=== PATIENT | female | born 1975 | race Caucasian/White ===

== ENCOUNTER 2019-04-03 18:15 | Inpatient (IN) | payer BC ==
[2019-04-03 18:44] LABS: #Basophils 0.1 thou/uL (0.0-0.2); #Eosinphils 0.1 thou/uL (0.0-0.7); #Lymphocytes 2.7 thou/uL (1.20-3.40); #Monocytes 0.8 thou/uL (0.11-0.59); #Neutrophils 11.6 thou/uL (1.40-6.50); %Basophils 0.8 % (0.0-1.0); %Eosinophils 0.4 % (0.0-10.0); %Lymphocytes 17.8 % (21.0-51.0); %Monocytes 5.5 % (0.0-10.0); %Neutrophils 75.5 % (42.0-75.0); Hemoglobin 15.2 g/dL (12.0-16.0); Mean Corpuscular HGB CONC 33.5 g/dL (32.0-36.0); Mean Corpuscular Hemoglobin 31.7 pg (27.0-31.0); Mean Corpuscular Volume 94.7 fL (78.0-98.0); Mean Platelet Volume 7.7 fL (7.4-10.4); Platelet Count 269 thou/uL (130-400); White Blood Cell (WBC) Count 15.3 thou/uL (4.8-10.8)
[2019-04-03 19:04] LABS: ALT (SGPT) 15 U/L (8-55); AST (SGOT) 13 U/L (5-34); Acetaminophen Less than 6.0 mcg/mL (10.0-30.0); Albumin 4.2 g/dL (3.5-5.0); Alcohol Less than 10 mg/dL (Less than 10); Alkaline Phosphatase 122 U/L (40-150); Anion Gap 16 mmol/L (10-20); BUN (Urea Nitrogen) 17 mg/dL (7.0-18.7); Bilirubin, Total 0.5 mg/dL (0.2-1.2); CK (CPK) 43 U/L (29-168); Calc. Creatinine Clearance 0 mL/min (70-130); Calcium 10.6 mg/dL (7.8-10.44); Carbon Dioxide 22 mmol/L (22-29); Chloride 99 mmol/L (98-107); Estimated GFR-MDRD 79; Globulin 3.5 g/dL (2.4-3.5); Glucose 283 mg/dL (70-105); Protein, Total 7.7 g/dL (6.0-8.3); Salicylate Less than 8.0 mg/dL (15.0-30.0); Sodium 133 mmol/L (136-145)
[2019-04-03] MEDS ORDERED: Lorazepam 2 MG/ML VIAL ONE (19:21)
[2019-04-03] MEDS ORDERED: Ondansetron PF 4 MG/2 ML Vial ONE (20:22)
[2019-04-03] MEDS ORDERED: Ondansetron PF 4 MG/2 ML Vial IVP PRN (20:44)
[2019-04-03] MEDS ORDERED: Ondansetron ODT 4 MG TAB PO PRN (20:44)
[2019-04-03] MEDS ORDERED: Acetaminophen 650 MG Suppository PR PRN (20:44)
[2019-04-03] MEDS ORDERED: Acetaminophen 325 MG TAB PO PRN (20:44)
[2019-04-03] MEDS ORDERED: Lorazepam 2 MG/ML VIAL SLOW IVP PRN (20:46)
[2019-04-03] MEDS ORDERED: HumaLOG 300 UNITS/3 ML VIAL SC PRN (21:34)
[2019-04-03] MEDS ORDERED: Dextrose 5% in Water 1,000 ML IV PRN (21:34)
[2019-04-03] MEDS ORDERED: Dextrose 50% Abboject 50 ML SYRINGE SLOW IVP PRN (21:34)
[2019-04-03] MEDS: Sodium Chloride 0.9% 1,000 ML IV SCH (21:46)
--- NOTE | 2019-04-03 22:15 | HP ---
PRIMARY CARE PHYSICIAN: The patient reported no PCP. CHIEF COMPLAINT: Intentional overdose with Wellbutrin. TIME OF EVALUATION: 8:30 p.m. HISTORY OF PRESENT ILLNESS: This is a 44 years old female patient with past medical history of hypertension, diabetes type 2, high cholesterol, came to the hospital after having an episode of intentional overdose as a suicidal attempt with Wellbutrin. Reportedly, the patient took 60-90 capsules. The patient is postictal after seizure and under the effect of Ativan, so history is being gathered from the ER staff. The patient had several episodes of nausea and vomiting that has continued in ER. Initially during this episode she developed an episode of seizure. The patient has been given IV fluids, Ativan for seizure control, Poison Control has been called and recommendations has been made for the patient to be observed for 24 hours with IV fluid management and benzodiazepines for seizure control. During my examination, she was lethargic, aroused with the pain stimulation. We will place in ICU. We will monitor closely. REVIEW OF SYSTEMS: Unable to obtain at this point. The patient is unable to cooperate to interview due to being postictal and after being given Ativan. PAST MEDICAL HISTORY: As mentioned in the HPI. SURGICAL HISTORY: Growth in the right arm. PSYCHIATRIC HISTORY: Anxiety, bipolar disorder, depression. FAMILY HISTORY: Reviewed, noncontributory to current presentation SOCIAL HISTORY: The patient drinks socially twice a month. Currently smokes cigarettes one pack per day for the past 10 years. ALLERGIES: NO KNOWN DRUG ALLERGIES REPORTED. MEDICATIONS: Unknown. PHYSICAL EXAMINATION: VITAL SIGNS: On presentation, blood pressure 149/112, heart rate 130, respiratory rate was 26, temperature 97.9, pain was 0/10, oxygen saturation was 97% on room air. GENERAL: The patient is alert, oriented, not in acute distress. HEENT: Eyes normal conjunctivae, moist oral mucosa. Anicteric. NECK: No JVD. RESPIRATORY: Bilateral air entry. No rales. No wheezes. Symmetric expansion. CARDIOVASCULAR: The patient is tachycardic. Regular rhythm. No murmurs. No gallop. No edema. ABDOMEN: Soft. Normal bowel sounds. MUSCULOSKELETAL: Baseline range of motion and strength. SKIN: Warm, intact. No pallor. No redness. Capillary refill seems to be intact. NEURO: The patient is lethargic, unable to fully explore. No evidence of any acute focal weakness. PSYCH: Unable to explore. The patient has suicidal attempt, now is postictal. DIAGNOSTIC DATA: EKG was reviewed. The patient has sinus tachycardia at a rate of 130, CT 152, QRS 90, QT corrected 438, possible left atrial enlargement. LABORATORY DATA: Reviewed. The patient has white count of 15.3, MCV 94.7, platelet count 269. Chemistry: Sodium 133, potassium 4.0, chloride 99, carbon dioxide 22, anion gap 16, BUN 17, creatinine 0.79, GFR 79, glucose 283, calcium 10.6. LFTs were negative. TSH 5.3. Toxicology was negative. ASSESSMENT AND PLAN: The patient will be placed in the hospital with following medical problems: 1. Wellbutrin overdose due to suicidal attempt. The patient is receiving supportive care with IV fluids and also seizure precautions. We will give Ativan for any further seizures. She got one already in the emergency room. We will monitor in intermediate care unit given the severity of illness. We will put her on aspiration precautions. 2. Suicidal attempt. The patient will need psychiatric evaluation once medically stable. 3. Deep venous thrombosis prophylaxis. 4. Leukocytosis of 15.3. No clear etiology. No evidence of infection at this point. 5. Hyponatremia, sodium 133. This is mild, no need for any acute intervention at this point. 6. Hyperglycemia. Glucose 283. The patient has a history of diabetes, which is uncontrolled. We will place the patient on sliding scale. 7. Acute seizures secondary to Wellbutrin intoxication, seizure precautions, Ativan p.r.n. for seizure control and watch for aspiration. 8. Hypercalcemia. Calcium 10.6 minimal. We will hydrate to monitor. We will treat accordingly. [facility] ID: [id number] [facility]
[2019-04-03 22:46] VITALS: BMI 25.5
[2019-04-04] MEDS: Sodium Chloride 0.9% 1,000 ML IV SCH ×3 (04:11→20:05)
[2019-04-04 06:18] LABS: #Lymphocytes 1.7 thou/uL (1.20-3.40); #Monocytes 0.6 thou/uL (0.11-0.59); #Neutrophils 13.5 thou/uL (1.40-6.50); %Basophils 0.3 % (0.0-1.0); %Eosinophils 0.2 % (0.0-10.0); %Lymphocytes 10.6 % (21.0-51.0); %Monocytes 3.6 % (0.0-10.0); %Neutrophils 85.3 % (42.0-75.0); Hemoglobin 12.3 g/dL (12.0-16.0); Mean Corpuscular HGB CONC 32.9 g/dL (32.0-36.0); Mean Corpuscular Hemoglobin 31.3 pg (27.0-31.0); Mean Platelet Volume 7.8 fL (7.4-10.4); Platelet Count 232 thou/uL (130-400); RBC Distribution Width 11.9 % (11.5-14.5); Red Blood Cell (RBC) Count 3.93 mill/uL (4.20-5.40); White Blood Cell (WBC) Count 15.9 thou/uL (4.8-10.8)
[2019-04-04 06:43] LABS: Anion Gap 10 mmol/L (10-20); BUN (Urea Nitrogen) 12 mg/dL (7.0-18.7); Calc. Creatinine Clearance 118 mL/min (70-130); Calcium 8.6 mg/dL (7.8-10.44); Carbon Dioxide 23 mmol/L (22-29); Chloride 105 mmol/L (98-107); Estimated GFR-MDRD Greater than 90; Glucose 250 mg/dL (70-105); Sodium 134 mmol/L (136-145)
[2019-04-04] MEDS ORDERED: Lorazepam 2 MG/ML VIAL SLOW IVP SCH (09:30)
[2019-04-04] MEDS ORDERED: Haloperidol Lactate 5 MG/ML VIAL IM SCH (09:30)
[2019-04-04] MEDS: Enoxaparin Sodium 40 MG/0.4 ML SYRINGE SC SCH (09:51)
[2019-04-04] MEDS ORDERED: Haloperidol Lactate 5 MG/ML VIAL IM PRN (10:11)
[2019-04-04] MEDS ORDERED: Lorazepam 2 MG/ML VIAL SLOW IVP PRN (11:55)
[2019-04-04] MEDS ORDERED: levETIRAcetam In NaCl (Iso-Os) 1,500 MG in Premix Bag 1 BAG IVPB SCH (12:00)
--- NOTE | 2019-04-04 12:23 | CON ---
DATE OF CONSULTATION: 04/04/2019 SERVICE: Pulmonary Medicine. REASON FOR CONSULTATION: [facility] patient. HISTORY OF PRESENT ILLNESS: The patient is a 44-year-old white female with past medical history significant for psychiatric disturbances. She was in her usual state of health when she decided to overdose on a bottle of Wellbutrin. It was an intentional overdose in order to hurt herself. She was brought to the emergency department. She had several episodes of nausea and vomiting. Eventually, she did have a seizure episode. She was given some IV fluids and Ativan. She was tucked into the [facility]. Ultimately, she got extraordinarily combative. She ended up given a couple doses of Ativan and even a dose of Haldol. A couple of hours later, she started having intermittent episodes of shaking and jerking spells, consistent with intermittent seizures. She cannot provide me any additional elements of the history at this point. PAST MEDICAL HISTORY: 1. Hypertension. 2. Dyslipidemia. 3. Type 2 diabetes mellitus. 4. Bipolar disorder. 5. Anxiety disorder. PAST SURGICAL HISTORY: Excision of growth from right arm. SOCIAL HISTORY: She drinks twice monthly. She currently smokes a pack of cigarettes on a daily basis. She uses illicit drugs. FAMILY HISTORY: Noncontributory. ALLERGIES: NO KNOWN DRUG ALLERGIES. MEDICATIONS: List of her inpatient medications was reviewed. No specific updates were made at this time. REVIEW OF SYSTEMS: General; head, ears, eyes, nose, throat; cardiovascular; respiratory; GI; ; musculoskeletal; neurologic; and skin are negative except as mentioned is the HPI. PHYSICAL EXAMINATION: VITAL SIGNS: Afebrile, pulse 112, blood pressure 131/93, and saturation 100% previously on room air. HEENT: Normocephalic and atraumatic. Sclerae white. Conjunctivae pink. Oral mucosa is moist without lesions. LUNGS: Decent air entry. There is no prolonged expiratory phase. No rhonchi or wheezing are present. No crackles. HEART: Normal rate and regular. ABDOMEN: Soft, nontender, and nondistended. Bowel sounds are positive. MUSCULOSKELETAL: No cyanosis or clubbing. No pitting in the bilateral lower extremities. NEUROLOGIC: Grossly nonfocal. Currently, she is postictal. LABORATORY DATA: WBC 15.9, hemoglobin 12.3, platelets 232,000. Basic metabolic profile currently unremarkable except for sodium of 134 that is improving. Liver function studies were previously unremarkable. TSH and CK are normal. Salicylates, acetaminophen, and plasma alcohol level are unremarkable. ASSESSMENT: 1. Wellbutrin overdose, intentional. 2. Suicide attempt. 3. Seizure, witnessed at bedside by myself. She had characteristic clonic and tonic phase and turned blue from head to toe. This was short lived for less than 30 seconds. DISCUSSION AND PLAN: I am going to load her with some Keppra. All medications that can reduce seizure threshold will be interrupted. Pulmonary/Critical Care will continue to follow along. She will remain in the IMCU for the time being. If she fails to come around, an EEG and MRI of the head will be considered in the next 24 hours. At this point, it is likely associated with Wellbutrin overdose. 70 minutes have been devoted to this patient in various activities. I personally reviewed all imaging studies and laboratory data noted within this document. For fifty percent of this time, I was interacting with the patient at the bedside or coordinating care with the care team. For the remainder of the time I was immediately available to the patient in the hospital unit. Job ID: [id number] [facility]
--- NOTE | 2019-04-04 13:15 | RAD ---
SINGLE VIEW CHEST: HISTORY: Acute hypoxic respiratory failure. COMPARISON: None. FINDINGS: Single view of the chest show normal sized cardiomediastinal silhouette. There is no evidence of cons olidation, mass, or pleural effusion. The bones are unremarkable. IMPRESSION: No evidence of acute cardiopulmonary disease. POS: C
--- NOTE | 2019-04-04 16:02 | PDOC.PN ---
- Subjective Encounter Start Date: 04/04/19 Encounter Start Time: 16:01 Subjective: wasvery agitated earleir and received ativan and haldol -: now somnolent -: sitter at bedside - Objective Resuscitation Status - Order Detail: 04/03/19 20:44 Resuscitation Status Routine Resuscitation Status: FULL: Full Resuscitation MAR Reviewed: Yes Vital Signs & Weight: Weight Weight 153 lb 6 oz Most Recent Monitor Data Heart Rate from ECG 104 NIBP 104/69 NIBP BP-Mean 80 Respiration from ECG 8 SpO2 98 I&O: 04/03/19 04/04/19 04/05/19 06:59 06:59 06:59 Intake Total 1368 Output Total 350 Balance 1018 Result Diagrams: 04/04/19 05:52 04/04/19 05:52 Additional Labs: Accuchecks 04/04/19 05:31 POC Glucose 269 H Phys Exam - Physical Examination sleeping . HEENT: PERRLA, sclera anicteric dry mucosa Neck: no nodes, no JVD, supple, full ROM Respiratory: no wheezing, no rales Cardiovascular: RRR, no significant murmur Gastrointestinal: soft, non-tender, no distention, positive bowel sounds Musculoskeletal: no edema, pulses present Neurological: moves all 4 limbs Dx/Plan (1) Drug overdose Code(s): T50.901A - POISONING BY UNSP DRUG/MEDS/BIOL SUBST, ACCIDENTAL, INIT Status: Acute Comment: Monitoring on tele (2) Seizures Code(s): R56.9 - UNSPECIFIED CONVULSIONS Status: Acute Comment: prn Ativan.started on keppra since then (3) Suicide attempt Status: Acute Comment: [facility] once stable - Plan DVT proph w/SCDs supportive care -: NS.NPO.sitter -: am labs * . Review of Systems - Medications/Allergies Allergies/Adverse Reactions: Allergies Allergy/AdvReac Type Severity Reaction Status Date / Time No Known Drug Allergies Allergy Verified 04/03/19 23:05 Medications: Current Medications Acetaminophen (Tylenol) 650 mg PO Q4H PRN PRN Reason: Headache/Fever/Mild Pain (1-3) Acetaminophen (Tylenol) [address] Q4H PRN PRN Reason: Headache/Fever/Mild Pain (1-3) Amoxicillin/Clavulanate Potassium (Augmentin) 875 mg PO Q12HR JOHN Stop: 04/09/19 21:01 Dextrose/Water (Dextrose 50%) 25 gm SLOW IVP PRN PRN PRN Reason: Hypoglycemia Enoxaparin Sodium (Lovenox) 40 mg SC 0900 [facility] Last Admin: 04/04/19 09:51 Dose: Not Given Glucagon (Glucagon) 1 mg IM PRN PRN PRN Reason: Hypoglycemia Sodium Chloride (Normal Saline 0.9%) 1,000 mls @ 125 mls/hr IV .Q8H [facility] Last Admin: 04/04/19 12:04 Dose: 1,000 mls Dextrose/Water (D5w) 1,000 mls @ 0 mls/hr IV .Q0M PRN PRN Reason: Hypoglycemia Levetiracetam 1,000 mg/ Device 100 mls @ 200 mls/hr IVPB BID [facility] Insulin Human Lispro (Humalog) 0 units SC .MILD SLIDING SCALE PRN PRN Reason: Mild Correctional Scale Lorazepam (Ativan) 2 mg SLOW IVP Q15MIN PRN PRN Reason: seizure Ondansetron HCl (Zofran Odt) 4 mg PO Q6H PRN PRN Reason: Nausea/Vomiting Ondansetron HCl (Zofran) 4 mg IVP Q6H PRN PRN Reason: Nausea/Vomiting Last Admin: 04/04/19 04:11 Dose: 4 mg
[2019-04-04] MEDS: levETIRAcetam In NaCl (Iso-Os) 1,000 MG in Premix Bag 1 BAG IVPB SCH (20:06)
[2019-04-04 20:47] LABS: Bilirubin Negative (Negative); Blood, Urine Trace (Negative); Glucose, Urine (Dipstick) Greater than 1000 mg/dL (Negative); Leukocyte 500 Leu/uL (Negative); Nitrite Negative (Negative); Protein, Urine (Dipstick) Negative (Neg-Trace); RBC/HPF 0-3 HPF (0-3); Urobilinogen Normal mg/dL (Less than 2); WBC/HPF Greater than 50 HPF (0-3)
[2019-04-04 20:49] LABS: Clarity Cloudy (Clear)
[2019-04-04] MEDS ORDERED: Amoxicillin/Potassium Clav 875 MG TAB PO SCH (21:00)
[2019-04-04 21:02] LABS: Amphetamine Not Detected (NotDetected); Barbiturates Screen Not Detected (NotDetected); Benzodiazepine Screen Detected (NotDetected); Cocaine Metabolite Screen Not Detected (NotDetected); Medtox Control Line Valid? VALID (VALID); Medtox Reader # READER 1; Methadone Not Detected (NotDetected); Methamphetamine Not Detected (NotDetected); Opiate Screen Not Detected (NotDetected); Oxycodone Screen Not Detected (NotDetected); Phencyclidine (PCP) Not Detected (NotDetected); THC/Cannabinoid Screen Not Detected (NotDetected); Tricyclic Screen Not Detected (NotDetected)
[2019-04-04 21:05] LABS: Bacteria/HPF 3+ HPF (None Seen); Unclassified Crystals None Seen HPF (None Seen)
[2019-04-04 21:06] LABS: Urine Culture Reflex No No
--- NOTE | 2019-04-04 21:53 | PDOC.EVN ---
Event Note - Event Note Event Note: Urinalysis came back positive for UTI; patient is likely on Augmentin for coverage of possible aspiration PNA; Dr. Alcantara recommends Zosyn for now to cover both.
[2019-04-04] MEDS: Piperacillin/Tazobactam 4.5 GM in Sodium Chloride 0.9% 100 ML IVPB SCH (23:28)
[2019-04-05] MEDS: Sodium Chloride 0.9% 1,000 ML IV SCH ×2 (05:29→14:31)
[2019-04-05] MEDS: Piperacillin/Tazobactam 4.5 GM in Sodium Chloride 0.9% 100 ML IVPB SCH ×2 (05:31→14:31)
[2019-04-05] MEDS: Enoxaparin Sodium 40 MG/0.4 ML SYRINGE SC SCH (09:46)
[2019-04-05] MEDS: levETIRAcetam In NaCl (Iso-Os) 1,000 MG in Premix Bag 1 BAG IVPB SCH (09:46)
--- NOTE | 2019-04-05 13:23 | PRG ---
DATE OF SERVICE: 04/05/2019 SERVICE: Pulmonary Medicine. INTERVAL HISTORY: Since yesterday, the patient has not had any additional episodes of seizures. Her mentation is actually quite good today. She seems more cool, calm, and collected. There were no overnight events or fevers. Otherwise, she is returning to her usual state of health. Her urinalysis was consistent with urinary tract infection. As such, she was escalated to Zosyn and Augmentin was interrupted. PHYSICAL EXAMINATION: VITAL SIGNS: Afebrile. Pulse 102, blood pressure 100/81, respirations 18, saturation 99% on room air. GENERAL: The patient is awake and alert, in no apparent distress. LUNGS: Decent air entry with no prolonged expiratory phase or wheezing present. HEART: Normal rate, regular. ABDOMEN: Soft, nontender, nondistended. Bowel sounds are positive. MUSCULOSKELETAL: No cyanosis or clubbing. There is no pitting in the bilateral lower extremities. NEUROLOGIC: Grossly nonfocal. LABORATORY DATA: Benzodiazepines were positive on the urine drug screen. Otherwise, it was negative. Alcohol, and acetaminophen and Salicylates were also unremarkable. IMAGING DATA: Chest x-ray demonstrates no evidence of acute cardiopulmonary abnormality. There is low lung volumes which accentuate her interstitial markings. ASSESSMENT: 1. Wellbutrin overdose, intentional. 2. Suicide attempt. 3. Seizure associated with Wellbutrin use. 4. Aspiration pneumonitis versus pneumonia. 5. Urinary tract infection. DISCUSSION AND PLAN: The patient will need 3 additional days of antibiotics for her either her UTI or her aspiration related pneumonia. As such, I will put her on Levaquin. I will discontinue the Zosyn. [facility] consultation will be placed. The patient is stable for transition to the Stroke Unit, where we will continue to watch for any additional seizure activity. That being said, she should be out of that. We will avoid anything that decreases her seizure threshold if possible. When she leaves the IMCU, I will sign off. Please call with additional questions. Job ID: [id number] [facility]
--- NOTE | 2019-04-05 14:30 | PQF ---
ABRAHAM NGUYEN RICHA MD [id number] [facility]- B09 [id number] CLINICAL DOCUMENTATION IMPROVEMENT CLARIFICATION FORM: ICD-10 Updated PLEASE DO AN ADDENDUM TO THE PROGRESS NOTE WITH ANY DOCUMENTATION UPDATES OR ADDITIONS AND CARRY THROUGH TO DC SUMMARY. THANK YOU. DATE: 04/05/19, 04/07/2019 ATTN:DR. Miroslava WRIGHT, Please exercise your independent, professional judgment in responding to the clarification form. .Clinical indicators are provided on the bottom of this form for your review. Please check appropriate box(s): [ ] Acute Respiratory Failure: [ ] with Hypoxia [ ] with Hypercapnia [ ] Acute Respiratory Failure due to: (etiology) [ ] Hypoxia [ ] Other diagnosis [ ] Unable to determine In addition, please specify: Present on Admission (POA): [ ] Yes [ ] No [ ] Unable to determine For continuity of documentation, please document condition throughout progress notes and discharge summary. Thank You. CLINICAL INDICATORS - SIGNS / SYMPTOMS / LABS 04/03 ED: RESPIRATIONS 20-26, O2 SAT 97% RA> 98-100% 2L/NC 04/03 H & P (EBONI) REPORTEDLY THE PT TOOK 60-90 CAPSULES OF WELLBUTRIN IN A SUICIDE ATTEMPT, THE PT IS POSTICTAL AFTER SEIZURE ACTIVITY AND WILL PLACE IN THE ICU FOR CLOSE MONITORING 04/04 CXR: HISTORY: ACUTE HYPOXIC RESPIRATORY FAILURE NO MENTION TO DATE OF ACUTE RESP FAILURE RISK: POSS ASPIRATION PNA (JN) DX SEIZURE (EBONI) INTENTIONAL WELLBUTRIN OVERDOSE (EBONI) TREATMENTS PULMONOLOGY CONSULT ICU MONITORING SUPPLEMENTAL O2 (ED REPORT) THANK YOU! JARROD (This form is maintained as a part of the permanent medical record) 2014 [employer] All Rights Reserved [email or web address] [phone] MTDSe
[2019-04-05 18:05] LABS: #Eosinphils 0.1 thou/uL (0.0-0.7); #Lymphocytes 1.9 thou/uL (1.20-3.40); #Monocytes 0.5 thou/uL (0.11-0.59); #Neutrophils 8.5 thou/uL (1.40-6.50); %Basophils 0.4 % (0.0-1.0); %Eosinophils 0.9 % (0.0-10.0); %Lymphocytes 17.2 % (21.0-51.0); %Monocytes 4.7 % (0.0-10.0); %Neutrophils 76.7 % (42.0-75.0); Hemoglobin 12.4 g/dL (12.0-16.0); Mean Corpuscular HGB CONC 32.6 g/dL (32.0-36.0); Mean Corpuscular Hemoglobin 31.4 pg (27.0-31.0); Mean Platelet Volume 7.7 fL (7.4-10.4); Platelet Count 224 thou/uL (130-400); RBC Distribution Width 11.9 % (11.5-14.5); Red Blood Cell (RBC) Count 3.97 mill/uL (4.20-5.40); White Blood Cell (WBC) Count 11.1 thou/uL (4.8-10.8)
--- NOTE | 2019-04-05 19:07 | PDOC.PN ---
- Subjective Encounter Start Date: 04/05/19 Encounter Start Time: 19:05 Subjective: feels much better today and would like to walk -: accpeted at [facility] involutarily per RN -: no more seizures - Objective Resuscitation Status - Order Detail: 04/03/19 20:44 Resuscitation Status Routine Resuscitation Status: FULL: Full Resuscitation MAR Reviewed: Yes Vital Signs & Weight: Vital Signs (12 hours) Temp 04/05/19 15:48 97.7 F 04/05/19 10:49 98.2 F 04/05/19 07:47 97.6 F Weight Weight 153 lb 6 oz Most Recent Monitor Data Heart Rate from ECG 89 NIBP 109/78 NIBP BP-Mean 88 Respiration from ECG 20 SpO2 95 I&O: 04/04/19 04/05/19 04/06/19 06:59 06:59 06:59 Intake Total 1368 3180 680 Output Total 350 1150 Balance 1018 2030 680 Result Diagrams: 04/05/19 17:58 04/04/19 05:52 Additional Labs: Accuchecks 04/05/19 04/05/19 04/04/19 10:45 05:35 20:12 POC Glucose 185 H 115 H 135 H Laboratory Tests 04/03/19 04/04/19 18:34 05:52 Calcium 10.6 H 8.6 Phys Exam - Physical Examination Constitutional: NAD HEENT: PERRLA, moist MMs, sclera anicteric, oral pharynx no lesions Neck: no nodes, no JVD, supple, full ROM Respiratory: no wheezing, no rales, no rhonchi, clear to auscultation bilateral Cardiovascular: RRR, no significant murmur Gastrointestinal: soft, non-tender, no distention, positive bowel sounds Musculoskeletal: no edema, pulses present Neurological: non-focal, normal sensation, moves all 4 limbs Psychiatric: normal affect, A&O x 3 Skin: no rash Dx/Plan (1) Drug overdose Code(s): T50.901A - POISONING BY UNSP DRUG/MEDS/BIOL SUBST, ACCIDENTAL, INIT Status: Acute Comment: .no QT prolongation Monitoring on tele (2) Seizures Code(s): R56.9 - UNSPECIFIED CONVULSIONS Status: Acute Comment: prn Ativan.started on keppra since then (3) Suicide attempt Status: Acute Comment: [facility] once stable (4) UTI (urinary tract infection) Status: Acute Comment: Cx sent.change to levaquin.no symptoms.wbc trending down - Plan OK to DC to [facility] recs to RP BH -: keppra and levaquin scripts added -: HD stable. * . Review of Systems - Review of Systems Constitutional: weakness, malaise. negative: fever, chills, sweats, other Cardiovascular: negative: chest pain, palpitations, orthopnea, paroxysmal nocturnal dyspnea, edema, light headedness, other Gastrointestinal: negative: Nausea, Vomiting, Abdominal Pain, Diarrhea, Constipation, Melena, Hematochezia, Other Genitourinary: negative: Dysuria, Frequency, Incontinence, Hematuria, Retention , Other Musculoskeletal: negative: Neck Pain, Shoulder Pain, Arm Pain, Back Pain, Hand Pain, Leg Pain, Foot Pain, Other Neurological: negative: Weakness, Numbness, Incoordination, Change in Speech, Confusion, Seizures, Other - Medications/Allergies Allergies/Adverse Reactions: Allergies Allergy/AdvReac Type Severity Reaction Status Date / Time No Known Drug Allergies Allergy Verified 04/03/19 23:05 Medications: Current Medications Acetaminophen (Tylenol) 650 mg PO Q4H PRN PRN Reason: Headache/Fever/Mild Pain (1-3) Acetaminophen (Tylenol) 650 mg RI Q4H PRN PRN Reason: Headache/Fever/Mild Pain (1-3) Dextrose/Water (Dextrose 50%) 25 gm SLOW IVP PRN PRN PRN Reason: Hypoglycemia Enoxaparin Sodium (Lovenox) 40 mg SC 0900 [facility] Last Admin: 04/05/19 09:46 Dose: Not Given Glucagon (Glucagon) 1 mg IM PRN PRN PRN Reason: Hypoglycemia Dextrose/Water (D5w) 1,000 mls @ 0 mls/hr IV .Q0M PRN PRN Reason: Hypoglycemia Insulin Human Lispro (Humalog) 0 units SC .MILD SLIDING SCALE PRN PRN Reason: Mild Correctional Scale Levetiracetam (Keppra) 500 mg PO BID JOHN Levofloxacin (Levaquin) 750 mg PO 0600 [facility] Stop: 04/07/19 06:01 Lorazepam (Ativan) 2 mg SLOW IVP Q15MIN PRN PRN Reason: seizure Ondansetron HCl (Zofran Odt) 4 mg PO Q6H PRN PRN Reason: Nausea/Vomiting Ondansetron HCl (Zofran) 4 mg IVP Q6H PRN PRN Reason: Nausea/Vomiting Last Admin: 04/04/19 04:11 Dose: 4 mg
[2019-04-05 19:43] VITALS: TEMP 98.2
[2019-04-05 20:19] VITALS: BP 129/78
[2019-04-05] MEDS ORDERED: levETIRAcetam 500 MG TAB PO SCH (21:00)
--- NOTE | 2019-04-06 00:59 | DIS ---
DATE OF ADMISSION: 04/03/2019 DATE OF DISCHARGE: 04/05/2019 PRIMARY CARE PHYSICIAN: None. CONDITION: At the time of discharge, stable and improved. DISCHARGE DISPOSITION: [facility], involuntary admission. DISCHARGE DIAGNOSES: 1. Wellbutrin overdose. 2. Suicide attempt. 3. Seizures, likely either due to Wellbutrin toxicity versus true seizure disorder without any prior history. 4. Urinary tract infection. 5. Suspected aspiration pneumonia. DISCHARGE MEDICATION: Keppra 500 mg p.o. b.i.d. and levofloxacin 750 mg p.o. daily for 5 more days. IN-HOUSE CONSULTATION: Pulmonary Critical Care Medicine, Dr. Lopez. PROCEDURES IN THE HOSPITAL: Chest x-ray upon presentation. HISTORY OF PRESENTING ILLNESS: Ms. Sargent is a 44-year-old female who was brought in to the emergency room by EMS after she has intentionally taken Wellbutrin multiple tablets at least 60 to 90 capsules as a suicide attempt. In the ER, she had multiple bouts of nausea and vomiting and developed an episode of seizure. She was given IV Ativan, IV fluids, and was admitted to [facility] where she was quite lethargic. Poison Control Center was contacted by the ER physician and they recommended telemetry monitoring. Please see admission history and physical dictated by Dr. Alcantara on 04/03/2019. She was found to have a leukocytosis of 15.3, hyponatremia with sodium of 133, blood sugar of 283. There was some question of aspiration pneumonia and she was put on Augmentin. HOSPITAL COURSE: Dr. Lopez saw the patient in the Critical Care and she had one more episode of seizures after she received a dose of Haldol for agitation. All Haldol was discontinued as this lowers the seizure threshold. Because it is unclear whether this is true seizure versus Wellbutrin induced seizure versus some undiagnosed seizure disorder, she was started on Keppra p.o. b.i.d. and will follow up in the outpatient setting. Her urinalysis was also consistent with UTI and cultures were obtained, which are pending at the time of discharge. She was empirically started on levofloxacin to cover both for aspiration pneumonia and urinary tract infection. Please note that these diagnosis are suspected and further workup is underway and pending at the time of discharge. Once she was cleared by medical staff, [facility] was consulted and they saw the patient and recommended involuntary admission at [facility]. This was accomplished with the help of the and she will be discharged in a stable condition. She was seen and examined prior to discharge. Please see hospitalist progress note from the day of discharge for full detail including [id number] interaction. TIME SPENT: Total time spent in the discharge of this patient, 35 minutes. Job ID: [id number]
== END 2019-04-05 22:56 | DRG 917 ==
LOC: ERS 18:15 → IMCU/EMU 19:58
PROVIDERS: ADMIT Hospitalist; ATTEND Hospitalist
DX: T43.292A Poisoning by other antidepressants, intentional self-harm, initial encounter (principal); J69.0 Pneumonitis due to inhalation of food and vomit; E87.1 Hypo-osmolality and hyponatremia; G40.89 Other seizures; N39.0 Urinary tract infection, site not specified; I10 Essential (primary) hypertension; E78.00 Pure hypercholesterolemia, unspecified; T14.91XA Suicide attempt, initial encounter; E11.65 Type 2 diabetes mellitus with hyperglycemia; F41.9 Anxiety disorder, unspecified; F31.9 Bipolar disorder, unspecified; X58.XXXA Exposure to other specified factors, initial encounter
CPT/HCPCS: 36415; 36416; 71045; 80048; 80053; 80306; 80307; 81001; 82550; 84443; 85025; 87077; 87086; 87186; 93005; 96361; 96374; 96375; J1630; J1953; J2060; J2405; J2543; J3490

== ENCOUNTER 2019-08-18 17:11 | Emergency (ER) | payer SELFPAY ==
[2019-08-18 18:50] LABS: #Basophils 0.1 thou/uL (0.0-0.2); #Eosinphils 0.1 thou/uL (0.0-0.7); #Lymphocytes 3.2 thou/uL (1.20-3.40); #Monocytes 0.5 thou/uL (0.11-0.59); #Neutrophils 9.9 thou/uL (1.40-6.50); %Basophils 0.4 % (0.0-1.0); %Eosinophils 0.5 % (0.0-10.0); %Lymphocytes 23.3 % (21.0-51.0); %Monocytes 3.6 % (0.0-10.0); %Neutrophils 72.1 % (42.0-75.0); Hemoglobin 15.9 g/dL (12.0-16.0); Mean Corpuscular HGB CONC 34.3 g/dL (32.0-36.0); Mean Corpuscular Hemoglobin 32.2 pg (27.0-31.0); Mean Platelet Volume 7.9 fL (7.4-10.4); Platelet Count 283 thou/uL (130-400); RBC Distribution Width 12.2 % (11.5-14.5); Red Blood Cell (RBC) Count 4.92 mill/uL (4.20-5.40); White Blood Cell (WBC) Count 13.7 thou/uL (4.8-10.8)
[2019-08-18 19:18] LABS: Acetaminophen Less than 6.0 mcg/mL (10.0-30.0); Alcohol Less than 10 mg/dL (Less than 10); Salicylate Less than 8.0 mg/dL (15.0-30.0)
[2019-08-18 19:32] LABS: ALT (SGPT) 24 U/L (8-55); AST (SGOT) 19 U/L (5-34); Albumin 4.4 g/dL (3.5-5.0); Alkaline Phosphatase 127 U/L (40-110); Anion Gap 15 mmol/L (10-20); BUN (Urea Nitrogen) 14 mg/dL (7.0-18.7); Bilirubin, Total 0.7 mg/dL (0.2-1.2); CK (CPK) 41 U/L (29-168); Calc. Creatinine Clearance 0 mL/min (70-130); Carbon Dioxide 21 mmol/L (22-29); Chloride 103 mmol/L (98-107); Estimated GFR-MDRD Greater than 90; Globulin 3.4 g/dL (2.4-3.5); Glucose 230 mg/dL (70-105); Potassium 3.5 mmol/L (3.5-5.1); Protein, Total 7.8 g/dL (6.0-8.3); Sodium 135 mmol/L (136-145)
[2019-08-18 19:39] LABS: Calcium 9.7 mg/dL (7.8-10.44)
== END 2019-08-18 21:29 | disposition home or self-care (01) ==
LOC: ERS 17:11
DX: F41.1 Generalized anxiety disorder (principal); R00.0 Tachycardia, unspecified
CPT/HCPCS: 36415; 80053; 80307; 82550; 84443; 85025; 93005

== ENCOUNTER 2019-08-20 19:23 | Emergency (ER) | payer SELFPAY ==
[2019-08-20 20:43] LABS: #Basophils 0.1 thou/uL (0.0-0.2); #Eosinphils 0.1 thou/uL (0.0-0.7); #Lymphocytes 3.2 thou/uL (1.20-3.40); #Monocytes 0.5 thou/uL (0.11-0.59); #Neutrophils 7.7 thou/uL (1.40-6.50); %Basophils 0.9 % (0.0-1.0); %Lymphocytes 27.8 % (21.0-51.0); %Monocytes 4.2 % (0.0-10.0); %Neutrophils 66.1 % (42.0-75.0); Hemoglobin 15.2 g/dL (12.0-16.0); Mean Corpuscular Volume 94.3 fL (78.0-98.0); Mean Platelet Volume 8.6 fL (7.4-10.4); Platelet Count 233 thou/uL (130-400); Red Blood Cell (RBC) Count 4.76 mill/uL (4.20-5.40); White Blood Cell (WBC) Count 11.6 thou/uL (4.8-10.8)
[2019-08-20 20:55] LABS: ALT (SGPT) 29 U/L (8-55); AST (SGOT) 18 U/L (5-34); Albumin 4.1 g/dL (3.5-5.0); Alkaline Phosphatase 121 U/L (40-110); Anion Gap 12 mmol/L (10-20); BUN (Urea Nitrogen) 14 mg/dL (7.0-18.7); Bilirubin, Total 0.4 mg/dL (0.2-1.2); CK (CPK) 18 U/L (29-168); Calc. Creatinine Clearance 0 mL/min (70-130); Calcium 9.6 mg/dL (7.8-10.44); Carbon Dioxide 24 mmol/L (22-29); Chloride 102 mmol/L (98-107); Estimated GFR-MDRD 86; Globulin 3.2 g/dL (2.4-3.5); Glucose 214 mg/dL (70-105); Potassium 3.4 mmol/L (3.5-5.1); Protein, Total 7.3 g/dL (6.0-8.3); Sodium 135 mmol/L (136-145)
[2019-08-20] MEDS ORDERED: Ziprasidone 20 MG VIAL ONE (20:56)
[2019-08-20 20:57] LABS: Acetaminophen Less than 6.0 mcg/mL (10.0-30.0); Alcohol Less than 10 mg/dL (Less than 10); Salicylate Less than 8.0 mg/dL (15.0-30.0)
--- NOTE | 2019-08-20 21:43 | CT ---
CT head noncontrast HISTORY: Altered mental status. FINDINGS: There is no evidence of acute intracranial hemorrhage or infarct. The ventricles appear nor mal in size, shape and position. There is no mass effect or shift of midline structures. Partially calcified scalp lesion at the left posterior midline vertex. IMPRESSION: No acute intracranial abnormalities are demonstrated.
[2019-08-21 00:06] LABS: Bilirubin Negative (Negative); Blood, Urine Negative (Negative); Clarity Clear (Clear); Glucose, Urine (Dipstick) Normal (Negative); Leukocyte Negative Leu/uL (Negative); Nitrite Negative (Negative); Protein, Urine (Dipstick) Negative (Neg-Trace); Urobilinogen Normal mg/dL (Less than 2)
[2019-08-21 00:18] LABS: Amphetamine Not Detected (NotDetected); Cocaine Metabolite Screen Not Detected (NotDetected); Medtox Reader # READER 4; Methamphetamine Not Detected (NotDetected); Opiate Screen Not Detected (NotDetected); Phencyclidine (PCP) Not Detected (NotDetected); THC/Cannabinoid Screen Not Detected (NotDetected)
[2019-08-21 00:19] LABS: Barbiturates Screen Not Detected (NotDetected); Benzodiazepine Screen Not Detected (NotDetected); Medtox Control Line Valid? VALID (VALID); Methadone Not Detected (NotDetected); Oxycodone Screen Not Detected (NotDetected); Tricyclic Screen Detected (NotDetected)
[2019-08-21 00:22] LABS: Pregnancy Test - Urine (BHCG) Negative (Negative); Pregu Control Background? CLEAR/WHITE (CLR/WHITE); Pregu Control Bar Appear? YES (CONTROL BAR); Specific Gravity 1.008 (1.002-1.036)
== END 2019-08-21 08:58 | disposition home or self-care (01) ==
LOC: ERS 19:23
DX: F29 Unspecified psychosis not due to a substance or known physiological condition (principal); E11.9 Type 2 diabetes mellitus without complications
CPT/HCPCS: 70450; 80053; 80306; 80307; 81003; 81025; 82550; 84443; 85025; 93005; 96372; J3486

== ENCOUNTER 2020-05-09 17:28 | Emergency (ER) | payer SELFPAY ==
[2020-05-09 18:26] LABS: #Basophils 0.1 thou/uL (0.0-0.2); #Eosinphils 0.1 thou/uL (0.0-0.7); #Lymphocytes 3.9 thou/uL (1.20-3.40); #Monocytes 0.7 thou/uL (0.11-0.59); #Neutrophils 10.1 thou/uL (1.40-6.50); %Basophils 0.8 % (0.0-1.0); %Eosinophils 0.6 % (0.0-10.0); %Lymphocytes 26.4 % (21.0-51.0); %Monocytes 4.4 % (0.0-10.0); %Neutrophils 67.8 % (42.0-75.0); Mean Corpuscular HGB CONC 33.4 g/dL (32.0-36.0); Mean Corpuscular Hemoglobin 31.6 pg (27.0-31.0); Mean Corpuscular Volume 94.6 fL (78.0-98.0); Mean Platelet Volume 7.9 fL (7.4-10.4); Platelet Count 280 thou/uL (130-400); RBC Distribution Width 12.1 % (11.5-14.5); Red Blood Cell (RBC) Count 5.06 mill/uL (4.20-5.40); White Blood Cell (WBC) Count 14.9 thou/uL (4.8-10.8)
[2020-05-09 18:40] LABS: ALT (SGPT) 32 U/L (8-55); AST (SGOT) 24 U/L (5-34); Acetaminophen Less than 6.0 mcg/mL (10.0-30.0); Albumin 4.4 g/dL (3.5-5.0); Alcohol Less than 10 mg/dL (Less than 10); Alkaline Phosphatase 127 U/L (40-110); Anion Gap 13 mmol/L (10-20); BUN (Urea Nitrogen) 13 mg/dL (7.0-18.7); Bilirubin, Total 0.3 mg/dL (0.2-1.2); CK (CPK) 76 U/L (29-168); Calc. Creatinine Clearance 0 mL/min (70-130); Calcium 9.4 mg/dL (7.8-10.44); Carbon Dioxide 25 mmol/L (22-29); Chloride 104 mmol/L (98-107); Estimated GFR-MDRD 81; Globulin 3.4 g/dL (2.4-3.5); Glucose 207 mg/dL (70-105); Potassium 3.4 mmol/L (3.5-5.1); Protein, Total 7.8 g/dL (6.0-8.3); Salicylate Less than 8.0 mg/dL (15.0-30.0); Sodium 139 mmol/L (136-145)
[2020-05-09 18:42] LABS: BHCG - Serum Negative (NEGATIVE); Pregs Control Background? CLEAR/WHITE (CLR/WHITE); Pregs Control Bar Appear? YES (CONTROL BAR)
[2020-05-09 18:56] LABS: Bacteria/HPF None Seen HPF (None Seen); Bilirubin Negative (Negative); Blood, Urine Negative (Negative); Calcium Oxalate Crystals 4+ HPF (None Seen); Clarity Turbid (Clear); Glucose, Urine (Dipstick) Greater than 1000 mg/dL (Negative); Ketone, Urine Trace mg/dL (Negative); Leukocyte Negative Leu/uL (Negative); Nitrite Negative (Negative); Protein, Urine (Dipstick) 70 mg/dL (Neg-Trace); Specific Gravity, Urine 1.034 (1.002-1.036); Urobilinogen 3 mg/dL (Less than 2); WBC/HPF 0-3 HPF (0-3); pH, Urine 5.5 (5.0-9.0)
[2020-05-09 19:00] LABS: Amphetamine Not Detected (NotDetected); Barbiturates Screen Not Detected (NotDetected); Benzodiazepine Screen Not Detected (NotDetected); Cocaine Metabolite Screen Not Detected (NotDetected); Medtox Control Line Valid? VALID (VALID); Medtox Reader # READER 1; Methadone Not Detected (NotDetected); Methamphetamine Not Detected (NotDetected); Opiate Screen Not Detected (NotDetected); Oxycodone Screen Not Detected (NotDetected); Phencyclidine (PCP) Not Detected (NotDetected); THC/Cannabinoid Screen Not Detected (NotDetected); Tricyclic Screen Not Detected (NotDetected)
--- NOTE | 2020-05-09 20:57 | RAD ---
CHEST ONE VIEW: 05/09/20 HISTORY: Chest pain. COMPARISON: Radiograph 04/04/19. FINDINGS: Lungs are clear. No pneumothorax. No effusion. Cardiac silhouette and mediastinal contours are within normal limits. No acute osseous abnormality. IMPRESSION: No acute intrathoracic abnormality. POS: HOME
== END 2020-05-09 19:31 | disposition left against medical advice (07) ==
LOC: ERS 17:28
DX: R00.0 Tachycardia, unspecified (principal); R53.1 Weakness; E11.9 Type 2 diabetes mellitus without complications; E78.5 Hyperlipidemia, unspecified; I10 Essential (primary) hypertension; F17.210 Nicotine dependence, cigarettes, uncomplicated; F41.9 Anxiety disorder, unspecified; F31.9 Bipolar disorder, unspecified; Z79.82 Long term (current) use of aspirin; Z79.899 Other long term (current) drug therapy
CPT/HCPCS: 36415; 71045; 80053; 80306; 80307; 81003; 81015; 82550; 84443; 84484; 84703; 85025; 93005; 94760; 96360